=== PATIENT | male | born 1945 | race Asian ===

== ENCOUNTER 2019-05-18 09:00 | Day surgery (SDC) | payer MEDICARE, OTHER ==
[~2019-05-18] VITALS: Ht 162.6 cm; Wt 79.4 kg
[~2019-05-18 09:00] MED LIST: ALLO300T2; DOXA2TAB52; METO-429; PIOG1TAB7; RSV10T; [UNRECOGNIZED DRUG - CODE]
[2019-05-18] MEDS ORDERED: PLAVIX (10:13)
[2019-05-18] MEDS ORDERED: GLIMEPIRIDE (10:13)
[2019-05-18] MEDS ORDERED: ALENDRONATE (10:13)
[2019-05-18] MEDS ORDERED: VIT D (10:13)
[2019-05-18] MEDS ORDERED: GLUCOSAMINE (10:13)
[2019-05-18] MEDS ORDERED: B COMPLEX (10:13)
[2019-05-18 10:17] VITALS: Ht 162.6 cm; Wt 79.4 kg
--- NOTE | 2019-05-18 10:21 | PREAC ---
Date/Time of Note Date/Time of Note DATE: 05/18/19 TIME: 10:18 Anesthesia Eval and Record Evaluation Time Pre-Procedure Interview DATE: 05/18/19 TIME: 10:18 Age 74 Sex male NPO: 8 hrs Preoperative diagnosis positive occult blood stool Planned procedure colonoscopy Past Medical History Past Medical History: Includes Cardio: HTN, Dyslipidemia, SD, CAD, CABG Endo: Diabetes GI: Other (history of rectal cancer ) Surgery & Anesthesia Issues No known issue Meds Anticoagulation: Yes (held since 05/16) Beta Halima within 24 hr: Yes Reason Beta Halima not given: Bradycarida, Hypotension Reported Medications [Alendronate] No Conflict Check 05/18/19 [Glucosamine] No Conflict Check 05/18/19 [Vit D] No Conflict Check 05/18/19 [Glimepiride] No Conflict Check 05/18/19 [B Complex] No Conflict Check 05/18/19 [Plavix] No Conflict Check 05/18/19 Allopurinol* (Allopurinol*) 300 Mg Tablet 03/29/11 Rosuvastatin Calcium* (Crestor*) 10 Mg Tablet 01/07/11 Pioglitazone Hcl-Metformin Hcl (Actoplus Met) 1 Tab Tablet 01/07/11 Doxazosin* (CARDURA*) 2 Mg Tablet 01/07/11 Amlodipine-Benazepril (Lotrel) 1 Cap Capsule 01/07/11 Metoprolol Tartrate* (Lopressor*) 50 Mg Tablet 01/07/11 Meds reviewed: Yes Allergies Coded Allergies: No Known Allergies (Verified Allergy, Unknown, 12/18/14) Allergies Reviewed: Yes Labs/Studies Labs Reviewed: Reviewed by anesthesiologist test: N/A Studies: Stress test Pre-procedure Exam Airway: Adequate mouth opening, Adequate thyromental dist Mallampati: Mallampati II Teeth: Normal Lung: Normal Heart: Normal ASA Physical Status ASA physical status: 3 Emergency: None Planned Anesthetic General/MAC: Mask Planned Pain Management Parenteral pain med Pre-operative Attestations Prior to commencing anesthesia and surgery, the patient was re-evaluated, there was verification of: *The patient's identity *The results of appropriate recent lab work and preoperative vital signs *The above evaluation not changing prior to induction *Anesthetic plan, risk benefits, alternative and complications discussed with patient/family; questions answered; patient/family understands, accepts and wishes to proceed. Plasticator used CRISPIN LIZ MD May 18, 2019 10:21
[2019-05-18] MEDS ORDERED: EPHEDrine SULFATE 50 MG/5 ML SYG ONE (10:29)
[2019-05-18] MEDS ORDERED: PROPOFOL 40 ML ONE (10:29)
[2019-05-18] MEDS ORDERED: LIDOCAINE 2% (SDV) 5 ML INJ ONE (10:29)
[2019-05-18 10:42] VITALS: BP 144/68; PULSE 57; RESP 18
--- NOTE | 2019-05-18 11:31 | PAC ---
Date/Time of Note Date/Time of Note DATE: 05/18/19 TIME: 11:31 Post-Anesthesia Notes Post-Anesthesia Note Last documented vital signs Vital Signs Date Temp Pulse Resp B/P (MAP) Pulse Ox O2 O2 Flow FiO2 Time Delivery Rate 05/18/19 97.8 57 18 144/68 96 Room Air 10:42 (93) Activity: WNL Respiratory function: WNL Cardiovascular function: WNL Mental status: Baseline Pain reasonably controlled: Yes Hydration appropriate: Yes Nausea/Vomiting absent: Yes Comments BP: 105/60 HR: 60 RR: 15 T: 98 SaO2: 99% CRISPIN LIZ MD May 18, 2019 11:31
[2019-05-18 11:47] VITALS: BP 126/60; PULSE 70; RESP 16
== END 2019-05-18 13:18 | disposition home or self-care (01) ==
LOC: GIL 09:00
PROVIDERS: ATTEND Internal Medicine Gastroenterology
DX: K92.1 Melena (principal); D12.5 Benign neoplasm of sigmoid colon; K64.8 Other hemorrhoids; I10 Essential (primary) hypertension; E11.9 Type 2 diabetes mellitus without complications; E78.5 Hyperlipidemia, unspecified; I25.2 Old myocardial infarction; I25.10 Atherosclerotic heart disease of native coronary artery without angina pectoris; Z79.02 Long term (current) use of antithrombotics/antiplatelets
CPT/HCPCS: 82962; 88305